=== PATIENT | male | born 1990 | race Caucasian/White ===

== ENCOUNTER 2017-11-13 14:43 | Emergency (ER) | payer OTHER ==
[2017-11-13] MEDS ORDERED: SUMAtriptan 6 MG/0.5 ML VIAL SUBQ STA (15:26)
--- NOTE | 2017-11-13 15:28 | ED Physician Documentation ---
PD HPI HEADACHE - Stated complaint Stated Complaint: DAVALOS - Chief complaint Chief Complaint: Neuro - History obtained from History obtained from: Patient - History of Present Illness Timing - onset: Today (27-year-old gentleman with frequent headaches, usually 4- 5 times a week. Usually left retro-orbital. He had one that started about 2 hours ago and is worse than his usual, although not the worst in his life. He says he used to live in [place] and he has had cranial imaging there which is normal to his understanding. There is no neck stiffness or light sensitivity with it. He tried Advil migraine which did not help. No recent travel or fevers.) Review of Systems Constitutional: reports: Reviewed and negative Cardiac: reports: Reviewed and negative Respiratory: reports: Reviewed and negative PD PAST MEDICAL HISTORY - Present Medications Home Medications: Ambulatory Orders Medication Instructions Recorded Confirmed SUMAtriptan [Imitrex] 25 mg PO BID PRN #14 tablet 11/13/17 - Allergies Allergies/Adverse Reactions: Allergies Allergy/AdvReac Type Severity Reaction Status Date / Time No Known Drug Allergies Allergy Verified 11/13/17 14:51 PD ED PE NORMAL - Vitals Vital signs reviewed: Yes - General General: Alert and oriented X 3, No acute distress - HEENT HEENT: PERRL, EOMI - Neck Neck: Supple, no meningeal sign, No bony TTP - Cardiac Cardiac: RRR, No murmur - Respiratory Respiratory: No respiratory distress, Clear bilaterally - Abdomen Abdomen: Normal bowel sounds, Soft, Non tender - Extremities Extremities: No edema, No calf tenderness / cord - Neuro Neuro: Alert and oriented X 3, Normal speech Eye Opening: Spontaneous Motor: Obeys Commands Verbal: Oriented GCS Score: 15 - Psych Psych: Normal mood, Normal affect Results - Vitals Vitals: Vital Signs - 24 hr 11/13/17 11/13/17 14:48 15:57 Temperature 36.6 C 36.3 C L Heart Rate 91 63 Respiratory 18 17 Rate Blood Pressure 132/78 H 120/73 O2 Saturation 97 99 Oxygen O2 Source Room air PD MEDICAL DECISION MAKING - ED course ED course: The headache is gradual in onset and similar to prior headaches. As such I doubt subarachnoid hemorrhage. There are no infectious symptoms such as fever or stiff neck to make me suspect meningitis. No carbon monoxide exposure by history. He was administered subcutaneous Imitrex with almost complete relief of his symptoms. - Sepsis Event Vital Signs: Vital Signs - 24 hr 11/13/17 11/13/17 14:48 15:57 Temperature 36.6 C 36.3 C L Heart Rate 91 63 Respiratory 18 17 Rate Blood Pressure 132/78 H 120/73 O2 Saturation 97 99 Oxygen O2 Source Room air Departure - Departure Disposition: 01 Home, Self Care Clinical Impression: Migraine headache Qualifiers: Migraine type: without aura Status migrainosus presence: with status migrainosus Intractability: not intractable Qualified Code(s): G43.001 - Migraine without aura, not intractable, with status migrainosus Condition: Good Record reviewed to determine appropriate education?: Yes Instructions: ED Headache Migraine Prescriptions: SUMAtriptan [Imitrex] 25 mg PO BID PRN #14 tablet PRN Reason: Headache Comments: Call your doctor to arrange a follow-up appointment, make the next available appointment. In the interim, return anytime if worse or if new symptoms develop.
[2017-11-13 15:58] VITALS: BP 120/73
== END 2017-11-13 16:14 | disposition home or self-care (01) ==
LOC: ED 14:43
DX: G43.001 Migraine without aura, not intractable, with status migrainosus (principal)
CPT/HCPCS: 96372; 99283

== ENCOUNTER 2017-11-17 21:40 | Emergency (ER) | payer OTHER ==
[2017-11-17] MEDS ORDERED: KETOROLAC 60 MG/2 ML VIAL IVP STA (22:07)
[2017-11-17] MEDS ORDERED: SODIUM CHLORIDE 0.9% 1,000 ML IV ONE (22:07)
[2017-11-17] MEDS ORDERED: METOCLOPRAMIDE 10 MG/2 ML VIAL IVP STA (22:07)
--- NOTE | 2017-11-17 22:28 | ED Physician Documentation ---
History of Present Illness - Stated complaint Stated Complaint: HEAD PX/DIZZY - Chief complaint Chief Complaint: Neuro - History obtained from History obtained from: Patient - Additonal information Additional information: 27-year-old male presents the emergency department for evaluation of headache, dizziness and spaciness. The patient reports having a history of recurrent headaches and normally has 4-5 headaches a week which normally resolve with Advil. The patient was recently seen in the emergency department for a similar headache. The patient reports ongoing head pain similar to his typical headache. The patient denies sudden onset, neck stiffness, radiation into his neck, fever or focal motor changes or focal neurologic changes. The patient also reports feeling "spacey/foggy" the patient has had episodes of feeling forgetful. The patient denies disorientation, confusion or altered mental status. No triggering factors. No relieving factors. Symptoms are described as moderate Review of Systems Constitutional: denies: Fever, Chills Eyes: denies: Loss of vision, Decreased vision, Photophobia, Discharge Ears: denies: Ear pain Nose: denies: Rhinorrhea / runny nose, Congestion Throat: denies: Dental pain / toothache Cardiac: denies: Chest pain / pressure Respiratory: denies: Dyspnea GI: denies: Abdominal Pain : denies: Dysuria Skin: denies: Rash Musculoskeletal: denies: Neck pain Neurologic: reports: Headache. denies: Generalized weakness, Focal weakness, Numbness, Difficulty speaking, Syncope, Altered mental status, Unresponsive, Head injury Immunocompromised: denies: Chemotherapy PD PAST MEDICAL HISTORY - Past Medical History Neuro: Headaches Endocrine/Autoimmune: Other - Past Surgical History Past Surgical History: No - Present Medications Home Medications: Ambulatory Orders Medication Instructions Recorded Confirmed SUMAtriptan [Imitrex] 25 mg PO BID PRN #14 tablet 11/13/17 - Allergies Allergies/Adverse Reactions: Allergies Allergy/AdvReac Type Severity Reaction Status Date / Time No Known Drug Allergies Allergy Verified 11/17/17 21:45 - Social History Does the pt smoke?: No Smoking Status: Never smoker Does the pt drink ETOH?: Yes Does the pt have substance abuse?: No - Immunizations Immunizations are current?: No Immunizations: TDAP >10years/unknown, Other immun current PD ED PE NORMAL - General General: Alert and oriented X 3, No acute distress - HEENT HEENT: Atraumatic, PERRL, Ears normal, Moist mucous membranes - Neck Neck: Supple, no meningeal sign - Cardiac Cardiac: RRR, Strong equal pulses - Respiratory Respiratory: No respiratory distress, Clear bilaterally - Derm Derm: Normal color, No rash - Extremities Extremities: No deformity - Neuro Neuro: Alert and oriented X 3, diplomatic interpreter 2-12 intact, No motor deficit, No sensory deficit, Normal speech - Psych Psych: Normal mood Results - Vitals Vitals: Vital Signs - 24 hr 11/17/17 11/17/17 21:43 23:14 Temperature 36.5 C Heart Rate 72 72 Respiratory 18 18 Rate Blood Pressure 133/85 H 128/75 O2 Saturation 99 98 Oxygen O2 Source Room air - EKG (time done) 22: 15 Rate: Rate (enter#) Rhythm: NSR Intervals: Normal FL, QRS normal Ischemia: Normal ST segments - Labs Labs: Laboratory Tests 11/17/17 11/17/17 11/17/17 22:46 23:40 23:40 Sodium 137 Potassium 3.6 Chloride 108 Carbon Dioxide 23 Anion Gap 6.0 BUN 14 Creatinine 0.8 Estimated GFR (MDRD) 117 Glucose 97 Calcium 8.5 Magnesium 2.0 Total Bilirubin 0.9 AST 21 ALT 20 Alkaline Phosphatase 82 Total Protein 6.8 Albumin 3.8 Globulin 3.0 Albumin/Globulin Ratio 1.3 Lipase 23 TSH 2.90 Free T4 0.97 Urine Color YELLOW Urine Clarity CLEAR Urine pH 7.0 Ur Specific [place] 1.010 Urine Protein NEGATIVE Urine Glucose (UA) NEGATIVE Urine Ketones NEGATIVE Urine Occult Blood NEGATIVE Urine Nitrite NEGATIVE Urine Bilirubin NEGATIVE Urine Urobilinogen 0.2 (NORMAL) Ur Leukocyte Esterase NEGATIVE Ur Microscopic Review NOT INDICATED Urine Culture Comments NOT INDICATED Urine Opiates Screen NEGATIVE Ur Oxycodone Screen NEGATIVE Urine Methadone Screen NEGATIVE Ur Propoxyphene Screen NEGATIVE Ur Barbiturates Screen NEGATIVE Ur Tricyclics Screen NEGATIVE Ur Phencyclidine Scrn NEGATIVE Ur Amphetamine Screen NEGATIVE U Methamphetamines Scrn NEGATIVE U Benzodiazepines Scrn NEGATIVE Urine Cocaine Screen NEGATIVE U Cannabinoids Screen NEGATIVE - Rads (name of study) CT HEAD Radiology: Final report received PD MEDICAL DECISION MAKING - ED course ED course: Reevaluation the patient is resting comfortably in his symptoms are much improved. The patient's workup does not reveal an acute abnormality that would necessitate admission to the hospital or acute surgical consultation. On physical exam there is no evidence of bacterial meningitis or subarachnoid hemorrhage which would necessitate further workup in the emergency department. The patient's symptoms seem to be secondary to a migrainous headache pattern. Given the frequency of the headaches I recommended close follow-up with primary care and suggested that he may require a referral to neurology and possibly an outpatient MRI. The patient is comfortable with this plan and appears appropriate for further workup as an outpatient.. I discussed warning signs and recommended returning to the emergency department immediately for worsening and or any concerns. - Sepsis Event Vital Signs: Vital Signs - 24 hr 11/17/17 11/17/17 21:43 23:14 Temperature 36.5 C Heart Rate 72 72 Respiratory 18 18 Rate Blood Pressure 133/85 H 128/75 O2 Saturation 99 98 Oxygen O2 Source Room air Departure - Departure Disposition: 01 Home, Self Care Clinical Impression: Headache Qualifiers: Headache type: other headache syndrome Qualified Code(s): G44.89 - Other headache syndrome Condition: Good Comments: Please follow-up with your primary care physician this coming week. If your symptoms are not improving you may require a MRI as an outpatient and possibly a referral to neurology for further workup and management of your chronic headaches. Please return to the emergency department immediately for worsening symptoms or any concerns
--- NOTE | 2017-11-17 22:42 | CT Report ---
Procedure Date: 11/17/2017 Accession Number: [id number] / [id number] Procedure: CT - Head W/O CPT Code: FULL RESULT: EXAM: CT HEAD EXAM DATE: 11/17/2017 10:34 PM. CLINICAL HISTORY: Headache. COMPARISON: None. TECHNIQUE: Multiaxial CT images were obtained from the foramen magnum to the vertex. Reformats: Coronal. IV contrast: None. In accordance with CT protocol optimization, one or more of the following dose reduction techniques were utilized for this exam: automated exposure control, adjustment of mA and/or KV based on patient size, or use of iterative reconstructive technique. FINDINGS: Parenchyma: No intraparenchymal hemorrhage. No evidence of mass, midline shift, or CT findings of infarction. Patricia-white differentiation is distinct. Extraaxial Spaces: Normal for age. No subdural or epidural collections identified. Ventricles: Normal in size and position. Sinuses and Orbits: Imaged paranasal sinuses, orbits, and mastoids show no significant abnormality. Bones: No evidence of fracture or calvarial defect. Other: None. IMPRESSION: Normal head CT. RADIA
[2017-11-17 22:57] LABS: MUDS CUTOFF CONCENTRATIONS CUTOFF CONC BELOW:
[2017-11-17 23:02] LABS: BILIRUBIN,URINE NEGATIVE (NEGATIVE); GLUCOSE, URINE (UA) NEGATIVE (NEGATIVE); KETONES,URINE (UA) NEGATIVE (NEGATIVE); LEUKOCYTE ESTERASE, URINE NEGATIVE (NEGATIVE); NITRITE,URINE NEGATIVE (NEGATIVE); OCCULT BLOOD,URINE NEGATIVE (NEGATIVE); PROTEIN,URINE NEGATIVE (NEGATIVE); UROBILINOGEN,URINE 0.2 (NORMAL) E.U./dL (NORMAL)
[2017-11-17 23:08] LABS: CLARITY,URINE CLEAR (CLEAR)
[2017-11-17 23:12] LABS: AMPHETAMINE SCREEN,URINE NEGATIVE (NEGATIVE); BENZODIAZEPINES SCREEN, URINE NEGATIVE (NEGATIVE); COCAINE SCREEN URINE NEGATIVE (NEGATIVE); METHADONE SCREEN, URINE NEGATIVE (NEGATIVE); METHAMPHETAMINES SCREEN, URINE NEGATIVE (NEGATIVE); OPIATE SCREEN, URINE NEGATIVE (NEGATIVE); OXYCODONE SCREEN, URINE NEGATIVE (NEGATIVE); PROPOXYPHENE SCREEN, URINE NEGATIVE (NEGATIVE); TRICYCLIC ANTIDEPRESSANT,URINE NEGATIVE (NEGATIVE)
[2017-11-18 00:05] LABS: ALBUMIN 3.8 g/dL (3.2-5.5); ALBUMIN/GLOBULIN RATIO 1.3 (1.0-2.2); BILIRUBIN,TOTAL 0.9 mg/dL (0.2-1.0); CALCIUM 8.5 mg/dL (8.5-10.3); CREATININE 0.8 mg/dL (0.6-1.2); TOTAL PROTEIN 6.8 g/dL (6.7-8.2)
[2017-11-18 00:21] LABS: THYROID STIMULATING HORMONE 2.9 uIU/mL (0.34-5.60)
[2017-11-18 00:24] LABS: FREE T4 (FREE THYROXINE) 0.97 ng/dL (0.58-1.64)
[2017-11-18 00:41] VITALS: BP 119/79
== END 2017-11-18 00:41 | disposition home or self-care (01) ==
LOC: ED 21:40
DX: G44.89 Other headache syndrome (principal)
CPT/HCPCS: 36415; 70450; 80053; 80306; 81003; 83690; 83735; 84439; 84443; 93005; 96361; 96374; 96375; 99283; J2765; 81001; 87086

== ENCOUNTER 2017-12-09 13:01 | Emergency (ER) | payer OTHER ==
[2017-12-09] MEDS ORDERED: DEXAMETHASONE 10 MG/ML VIAL PO STA (14:02)
--- NOTE | 2017-12-09 14:04 | ED Physician Documentation ---
PD HPI CHEST PAIN - Stated complaint Stated Complaint: LT ARM NUMBNESS/CHEST PX - Chief complaint Chief Complaint: Resp - History obtained from History obtained from: Patient - History of Present Illness Timing - onset: Today Timing - onset during: Rest Timing - duration: Hours Timing - details: Gradual onset, Still present Quality: Tightness Location: Substernal Radiation: Left upper extremity Improved by: Rest Worsened by: Inspiration, Palpation Associated symptoms: Cough. No: Diaphoresis, Nausea, Vomiting, Feeling faint / dizzy, General Weakness, Palpitations Similar symptoms before: Has not had sx before Recently seen: Clinic - Additional information Additional information: 27-year-old male former smoker has developed some shortness of breath this week with a smoke inversion. He went to see his primary care doctor yesterday with some shortness of breath and was given an inhaler which he states that help open up his airway. He does not feel he needs that today but now he is developed some pain in the central portion of his chest is worse with a deep breath. He has some radiation of the pain into his left arm and was told to come to the emergency department for evaluation. Review of Systems Constitutional: denies: Fever Eyes: denies: Decreased vision Ears: denies: Ear pain Nose: reports: Rhinorrhea / runny nose, Congestion Throat: denies: Sore throat Cardiac: reports: Chest pain / pressure. denies: Palpitations, Pedal edema, Calf pain Respiratory: reports: Cough. denies: Dyspnea, Wheezing GI: denies: Abdominal Pain, Nausea, Vomiting : denies: Dysuria, Frequency PD PAST MEDICAL HISTORY - Past Medical History Cardiovascular: None Respiratory: None Neuro: Headaches Endocrine/Autoimmune: Other : None HEENT: None Psych: None Musculoskeletal: None Derm: None Other Past Medical History: Hypoglycemia - Past Surgical History Past Surgical History: No - Present Medications Home Medications: Ambulatory Orders Medication Instructions Recorded Confirmed SUMAtriptan [Imitrex] 25 mg PO BID PRN #14 tablet 11/13/17 Azithromycin [Zithromax] 250 mg PO DAILY #6 tablet 12/09/17 - Allergies Allergies/Adverse Reactions: Allergies Allergy/AdvReac Type Severity Reaction Status Date / Time No Known Drug Allergies Allergy Verified 12/09/17 13:19 - Social History Does the pt smoke?: No Smoking Status: Never smoker Does the pt drink ETOH?: No Does the pt have substance abuse?: No - Immunizations Immunizations are current?: Yes Immunizations: TDAP >10years/unknown, Other immun current - POLST Patient has POLST: No PD ED PE NORMAL - Vitals Vital signs reviewed: Yes (hypertensive mild ) - General General: Alert and oriented X 3, No acute distress, Well developed/nourished - HEENT HEENT: Atraumatic, PERRL, EOMI, Other (mild inflamation in the right TM ) - Neck Neck: Supple, no meningeal sign, No bony TTP - Cardiac Cardiac: RRR, No murmur - Respiratory Respiratory: No respiratory distress, Clear bilaterally - Abdomen Abdomen: Soft, Non tender - Back Back: No CVA TTP, No spinal TTP - Derm Derm: Normal color, Warm and dry, No rash - Extremities Extremities: No deformity, No edema - Neuro Neuro: Alert and oriented X 3, laborer yard 2-12 intact, No motor deficit, No sensory deficit, Normal speech Eye Opening: Spontaneous Motor: Obeys Commands Verbal: Oriented GCS Score: 15 - Psych Psych: Normal mood, Normal affect Results - Vitals Vitals: Vital Signs - 24 hr 12/09/17 13:10 Temperature 36.8 C Heart Rate 80 Respiratory 18 Rate Blood Pressure 128/88 H O2 Saturation 97 Oxygen O2 Source Room air PD MEDICAL DECISION MAKING - ED course Complexity details: reviewed old records, considered differential, d/w patient ED course: 27-year-old male has developed a cough congestion sputum production and chest wall tenderness. He did have some reactive airway disease that improved with the albuterol yesterday and I suspect this is all related to the smoke conversion and the time factor with development of chest wall pain after 5 days. I suspect he had subclinical asthma the entire time leading to the chest wall fatigue. He does have OM on exam and today here in the emergency department we have administered dexamethasone 10 mg orally and we will place on some antibiotic as well. I discussed the findings and pathophysiology of the chest wall strain related to the subclinical asthma and we are expecting complete resolution. - Sepsis Event Vital Signs: Vital Signs - 24 hr 12/09/17 13:10 Temperature 36.8 C Heart Rate 80 Respiratory 18 Rate Blood Pressure 128/88 H O2 Saturation 97 Oxygen O2 Source Room air Departure - Departure Disposition: 01 Home, Self Care Clinical Impression: Strain of chest wall Qualifiers: Encounter type: initial encounter Qualified Code(s): S29.011A - Strain of muscle and tendon of front wall of thorax, initial encounter Otitis media Qualifiers: Otitis media type: suppurative Chronicity: acute Laterality: right Recurrence: not specified as recurrent Spontaneous tympanic membrane rupture: without spontaneous rupture Qualified Code(s): H66.001 - Acute suppurative otitis media without spontaneous rupture of ear drum, right ear Condition: Stable Instructions: ED Otitis Media Acute Adult, ED Strain Chest Wall Ch Follow-Up: [facility] [Provider Group] Prescriptions: Azithromycin [Zithromax] 250 mg PO DAILY #6 tablet
[2017-12-09] MEDS ORDERED: CHERRY SYRUP 10 ML UDC PO ONE (14:06)
[2017-12-09 14:16] VITALS: BP 122/81
== END 2017-12-09 14:17 | disposition home or self-care (01) ==
LOC: ED 13:01
DX: S29.011A Strain of muscle and tendon of front wall of thorax, initial encounter (principal); H66.001 Acute suppurative otitis media without spontaneous rupture of ear drum, right ear; X01.1XXA Exposure to smoke in uncontrolled fire, not in building or structure, initial encounter
CPT/HCPCS: 99283; A9270

== ENCOUNTER 2017-12-25 22:07 | Emergency (ER) | payer OTHER ==
[2017-12-25] MEDS ORDERED: SODIUM CHLORIDE 0.9% 1,000 ML IV ONE (22:19)
[2017-12-25] MEDS ORDERED: ONDANSETRON 4 MG/2 ML VIAL IVP STA (22:19)
[2017-12-25] MEDS ORDERED: KETOROLAC 60 MG/2 ML VIAL IVP STA (22:19)
[2017-12-25 22:40] LABS: BILIRUBIN,URINE NEGATIVE (NEGATIVE); GLUCOSE, URINE (UA) NEGATIVE (NEGATIVE); KETONES,URINE (UA) NEGATIVE (NEGATIVE); LEUKOCYTE ESTERASE, URINE NEGATIVE (NEGATIVE); NITRITE,URINE NEGATIVE (NEGATIVE); OCCULT BLOOD,URINE NEGATIVE (NEGATIVE); PROTEIN,URINE NEGATIVE (NEGATIVE); UROBILINOGEN,URINE 0.2 (NORMAL) E.U./dL (NORMAL)
[2017-12-25 22:40] LABS: BASOPHILS # (AUTO) 0.1 10^3/uL (0.0-0.1); BASOPHILS % (AUTO) 0.7 %; EOSINOPHILS # (AUTO) 0.1 10^3/uL (0.0-0.7); EOSINOPHILS % (AUTO) 0.7 %; HGB - HEMOGLOBIN 14.9 g/dL (14.0-18.0); LYMPHOCYTES % (AUTO) 23.8 %; MEAN CORPUSCULAR HGB CONC 35.4 g/dL (32.0-36.0); MEAN CORPUSCULAR VOLUME 90.6 fL (80.0-94.0); MEAN PLATELET VOLUME 8.2 fL (7.4-11.4); MONOCYTES # (AUTO) 0.7 10^3/uL (0.0-1.0); MONOCYTES % (AUTO) 8.1 %; NEUTROPHILS # (AUTO) 5.7 10^3/uL (1.5-6.6); NEUTROPHILS % (AUTO) 66.7 %; PLT - PLATELET COUNT 266 10^3/uL (130-450); RED BLOOD COUNT 4.64 10^6/uL (4.70-6.10); RED CELL DISTRIBUTION WIDTH 13.1 % (12.0-15.0); WHITE BLOOD COUNT 8.5 x10^3/uL (4.8-10.8)
[2017-12-25 22:44] LABS: CLARITY,URINE CLEAR (CLEAR)
[2017-12-25 22:53] LABS: ALBUMIN 4.4 g/dL (3.2-5.5); ALBUMIN/GLOBULIN RATIO 1.3 (1.0-2.2); BILIRUBIN,TOTAL 0.5 mg/dL (0.2-1.0); CALCIUM 9.1 mg/dL (8.5-10.3); CREATININE 0.8 mg/dL (0.6-1.2); TOTAL PROTEIN 7.7 g/dL (6.7-8.2)
[2017-12-25] MEDS ORDERED: IOPAMIDOL-300 100 ML VIAL ONE (23:35)
[2017-12-26] MEDS ORDERED: IOPAMIDOL-300 100 ML VIAL IVP ONE (00:26)
--- NOTE | 2017-12-26 00:34 | CT Report ---
Reason: LLQ pain Procedure Date: 12/26/2017 Accession Number: [id number] / [id number] Procedure: CT - Abdomen/Pelvis W/ CPT Code: FULL RESULT: EXAM: CT ABDOMEN AND PELVIS EXAM DATE: 12/26/2017 12:06 AM. CLINICAL HISTORY: LLQ pain. COMPARISONS: None. TECHNIQUE: Routine helical CT imaging was performed through the abdomen and pelvis. IV contrast: 100 ML ISOVUE 300. Enteric contrast: No. Reconstructions: Coronal and sagittal. In accordance with CT protocol optimization, one or more of the following dose reduction techniques were utilized for this exam: automated exposure control, adjustment of mA and/or KV based on patient size, or use of iterative reconstructive technique. FINDINGS: Lung Bases: Unremarkable. Liver: Normal. No masses. Gallbladder/Bile Ducts: Unremarkable. Spleen: Normal. Pancreas: Normal. Adrenal Glands: Normal. Kidneys: Normal. No masses or hydronephrosis. Peritoneal Cavity/Bowel: Normal. No free fluid, free air or adenopathy. No masses or acute inflammatory process. The appendix is well visualized and normal. Pelvic Organs: There is inflammation around the distal sigmoid colon and rectum. No diverticula are noted. No pelvic adenopathy. Vasculature: No aneurysms or other significant abnormality. Bones: No significant abnormality. Other: None. IMPRESSION: Inflammation around the distalmost sigmoid colon and rectum, compatible with colitis. No diverticula are noted. No adenopathy. RADIA
[2017-12-26] MEDS ORDERED: AMOX/CLAV 875 MG/125 MG TABLET PO STA (00:37)
[2017-12-26] MEDS ORDERED: HYDROcod/ACETAM 10 MG/325 MG TABLET PO STA (00:41)
--- NOTE | 2017-12-26 00:42 | ED Physician Documentation ---
PD HPI ABD PAIN - Stated complaint Stated Complaint: ABD PX - Chief complaint Chief Complaint: Abd Pain - Additional information Additional information: 27-year-old male presents the emergency department with increasing left lower abdominal pain over the past several days which she describes as a sharp stabbing pain. The patient reports nausea. The patient denies vomiting or diarrhea or blood in the stools. No dysuria. No relieving factors. Symptoms are described as moderate. No other associated symptoms Review of Systems Constitutional: reports: Fatigue. denies: Fever Eyes: denies: Discharge Ears: denies: Ear pain Nose: denies: Congestion Throat: denies: Sore throat Cardiac: denies: Chest pain / pressure Respiratory: denies: Dyspnea GI: reports: Abdominal Pain, Nausea. denies: Bloody / black stool : denies: Dysuria Skin: denies: Rash Musculoskeletal: denies: Neck pain Neurologic: denies: Generalized weakness Immunocompromised: denies: Chemotherapy PD PAST MEDICAL HISTORY - Past Medical History Past Medical History: Yes Cardiovascular: None Respiratory: None Neuro: Headaches Endocrine/Autoimmune: Other : None HEENT: None Psych: None Musculoskeletal: None Derm: None Other Past Medical History: Chronic shoulder pain - Past Surgical History Past Surgical History: No - Present Medications Home Medications: Ambulatory Orders Medication Instructions Recorded Confirmed Fluticasone [Flonase] 2 sprays NS BID 12/25/17 12/25/17 Naproxen 1 tab PO DAILY PRN 12/25/17 12/25/17 Amox/Clav 875/125 [Augmentin] 1 each PO Q12H #20 tablet 12/26/17 HYDROcod/ACETAM 5/325 [[place] 5/325] 1 each PO Q6H PRN #15 tablet 12/26/17 Ondansetron Odt [Zofran] 4 mg TL Q6H PRN #20 tablet 12/26/17 - Allergies Allergies/Adverse Reactions: Allergies Allergy/AdvReac Type Severity Reaction Status Date / Time No Known Drug Allergies Allergy Verified 12/25/17 22:15 - Social History Does the pt smoke?: No Smoking Status: Never smoker Does the pt drink ETOH?: No Does the pt have substance abuse?: No - Immunizations Immunizations are current?: Yes Immunizations: TDAP >10years/unknown, Other immun current - POLST Patient has POLST: No PD ED PE NORMAL - General General: Alert and oriented X 3, No acute distress - HEENT HEENT: Atraumatic, PERRL, EOMI, Ears normal - Cardiac Cardiac: RRR, Strong equal pulses - Respiratory Respiratory: No respiratory distress - Abdomen Abdomen: Soft, Non distended. No: Non tender (The patient has tenderness to palpation in the left lower quadrant, there is no rebound or peritoneal signs) - Male Male : Functional Architect present, Other (The patient has no swelling of the testicles , there is no tenderness of the testicles bilaterally, there is no skin changes , the patient has normal cremasteric reflex) - Derm Derm: Normal color - Extremities Extremities: No deformity, No edema - Neuro Neuro: Alert and oriented X 3, Normal speech - Psych Psych: Normal affect Results - Vitals Vitals: Vital Signs - 24 hr 12/25/17 12/25/17 22:13 23:01 Temperature 36.7 C Heart Rate 80 76 Respiratory 16 16 Rate Blood Pressure 115/79 120/77 O2 Saturation 98 99 Oxygen O2 Source Room air - Labs Labs: Laboratory Tests 12/25/17 12/25/17 12/25/17 22:25 22:33 22:33 WBC 8.5 RBC 4.64 L Hgb 14.9 Hct 42.0 MCV 90.6 MCH 32.0 H MCHC 35.4 RDW 13.1 Plt Count 266 MPV 8.2 Neut # (Auto) 5.7 Lymph # (Auto) 2.0 [place] # (Auto) 0.7 Eos # (Auto) 0.1 Baso # (Auto) 0.1 Absolute Nucleated RBC 0.00 Nucleated RBC % 0.0 Sodium 138 Potassium 3.6 Chloride 104 Carbon Dioxide 26 Anion Gap 8.0 BUN 13 Creatinine 0.8 Estimated GFR (MDRD) 117 Glucose 97 Calcium 9.1 Total Bilirubin 0.5 AST 22 ALT 23 Alkaline Phosphatase 87 Total Protein 7.7 Albumin 4.4 Globulin 3.3 Albumin/Globulin Ratio 1.3 Lipase 28 Urine Color YELLOW Urine Clarity CLEAR Urine pH 7.0 Ur Specific [place] 1.020 Urine Protein NEGATIVE Urine Glucose (UA) NEGATIVE Urine Ketones NEGATIVE Urine Occult Blood NEGATIVE Urine Nitrite NEGATIVE Urine Bilirubin NEGATIVE Urine Urobilinogen 0.2 (NORMAL) Ur Leukocyte Esterase NEGATIVE Ur Microscopic Review NOT INDICATED Urine Culture Comments NOT INDICATED - Rads (name of study) CT abd/pelvis Radiology: Final report received (IMPRESSION: Inflammation around the distalmost sigmoid colon and rectum, compatible with colitis. No diverticula are noted. No adenopathy. ) PD MEDICAL DECISION MAKING - ED course ED course: The patient's workup reveals colitis, on reevaluation the patient resting comfortably and appears much improved. There is no evidence of sepsis or perforation which would necessitate admission to the hospital or acute surgical consultation. The patient appears appropriate for outpatient management. I discussed warning signs and recommended returning to the emergency department immediately for worsening symptoms or any concerns - Sepsis Event Vital Signs: Vital Signs - 24 hr 12/25/17 12/25/17 22:13 23:01 Temperature 36.7 C Heart Rate 80 76 Respiratory 16 16 Rate Blood Pressure 115/79 120/77 O2 Saturation 98 99 Oxygen O2 Source Room air Departure - Departure Disposition: 01 Home, Self Care Clinical Impression: Acute abdominal pain, Colitis Instructions: Abdominal Pain Prescriptions: Amox/Clav 875/125 [Augmentin] 1 each PO Q12H #20 tablet HYDROcod/ACETAM 5/325 [[place] 5/325] 1 each PO Q6H PRN #15 tablet PRN Reason: Pain Ondansetron Odt [Zofran] 4 mg TL Q6H PRN #20 tablet PRN Reason: Nausea / Vomiting Comments: Please follow-up with your primary care this week for recheck. Please asked them to arrange for an outpatient colonoscopy to further evaluate your findings today. Please return to the emergency department immediately for worsening symptoms or any concerns.
[2017-12-26 01:20] VITALS: BP 122/72
== END 2017-12-26 00:50 | disposition home or self-care (01) ==
LOC: ED 22:07
DX: K52.9 Noninfective gastroenteritis and colitis, unspecified (principal); R11.0 Nausea
CPT/HCPCS: 36415; 74177; 80053; 81003; 83690; 85025; 96361; 96374; 96375; 99283; 99284; A9270; Q9967; 81001; 87086

== ENCOUNTER 2018-02-27 13:14 | Emergency (ER) | payer OTHER ==
--- NOTE | 2018-02-27 14:44 | ED Physician Documentation ---
PD HPI MALE - Stated complaint Stated Complaint: BLOOD IN URINE - Chief complaint Chief Complaint: UTI - History obtained from History obtained from: Patient - History of Present Illness Timing - onset: Yesterday Timing - details: Abrupt onset (noted onset of some stinging feeling with urination yesterday and this morning and some blood in urine today. No prior similar. No sores nor rash.) Associated symptoms: Dysuria, Hematuria. No: Discharge, Genital sore / lesion, Testiclar pain Similar symptoms before: Has not had sx before Recently seen: Not recently seen Review of Systems Constitutional: denies: Fever, Chills Throat: denies: Sore throat : reports: Dysuria, Hematuria. denies: Discharge Skin: denies: Rash PD PAST MEDICAL HISTORY - Past Medical History Cardiovascular: None Respiratory: None Neuro: Headaches Endocrine/Autoimmune: Other : None HEENT: None Psych: None Musculoskeletal: None Derm: None - Past Surgical History Past Surgical History: No - Present Medications Home Medications: Ambulatory Orders Medication Instructions Recorded Confirmed Fluticasone [Flonase] 2 sprays NS BID 12/25/17 12/25/17 Naproxen 1 tab PO DAILY PRN 12/25/17 12/25/17 Amox/Clav 875/125 [Augmentin] 1 each PO Q12H #20 tablet 12/26/17 HYDROcod/ACETAM 5/325 [Martha 5/325] 1 each PO Q6H PRN #15 tablet 12/26/17 Ondansetron Odt [Zofran] 4 mg TL Q6H PRN #20 tablet 12/26/17 Naproxen 375 mg PO BID #20 tablet 02/27/18 Phenazopyridine HCl [Pyridium] 200 mg PO TID PRN #6 tablet 02/27/18 Sulfamethox/Trimeth 800/160 1 each PO BID #14 tablet 02/27/18 [Bactrim Ds 800/160] - Allergies Allergies/Adverse Reactions: Allergies Allergy/AdvReac Type Severity Reaction Status Date / Time No Known Drug Allergies Allergy Verified 12/25/17 22:15 - Social History Does the pt smoke?: No Smoking Status: Never smoker Does the pt drink ETOH?: No Does the pt have substance abuse?: No - Immunizations Immunizations are current?: Yes Immunizations: TDAP >10years/unknown, Other immun current - POLST Patient has POLST: No PD ED PE NORMAL - Vitals Vital signs reviewed: Yes - General General: Alert and oriented X 3, No acute distress, Well developed/nourished - Abdomen Abdomen: Soft, Non tender - Male Male : Other (normal genitalia. ) - Back Back: No CVA TTP Results - Vitals Vitals: Oxygen O2 Source Room air - Labs Labs: Microbiology 02/27/18 13:36 Urine Culture - Final Urine,Clean Catch LESS THAN 10,000 COLONIES/ML polymicrobial growth including potential pathogens. This is suggestive of skin or other contamination. Laboratory Tests 02/27/18 13:36 Urine Color RED/BLOODY Urine Clarity BLOODY Urine pH 7.0 Ur Specific [place] 1.010 Urine Protein 100 H Urine Glucose (UA) NEGATIVE Urine Ketones NEGATIVE Urine Occult Blood LARGE H Urine Nitrite NEGATIVE Urine Bilirubin NEGATIVE Urine Urobilinogen 0.2 (NORMAL) Ur Leukocyte Esterase MODERATE H Urine RBC TNTC H Urine WBC 11-25 H Ur Squamous Epith Cells NONE SEEN Urine Bacteria None Seen Ur Microscopic Review INDICATED Urine Culture Comments INDICATED Departure - Departure Disposition: 01 Home, Self Care Clinical Impression: Dysuria UTI (urinary tract infection) Qualifiers: Urinary tract infection type: acute cystitis Hematuria presence: with hematuria Qualified Code(s): N30.01 - Acute cystitis with hematuria Condition: Stable Record reviewed to determine appropriate education?: Yes Instructions: ED UTI Cystitis Male Prescriptions: Naproxen 375 mg PO BID #20 tablet Phenazopyridine HCl [Pyridium] 200 mg PO TID PRN #6 tablet PRN Reason: dysuria Sulfamethox/Trimeth 800/160 [Bactrim Ds 800/160] 1 each PO BID #14 tablet Comments: Drink lots of fluids. Tylenol if needed for fevers or pains. Naproxen twice daily for a week for the inflammation. Pyridium (Azo) to help with discomfort of urination. Bactrim antibiotic twice daily for a week. He should feel improved over the next couple of days. Recheck if not improved over the next few days or if worsening symptoms. Discharge Date/Time: 02/27/18 15:29
[2018-02-27] MEDS ORDERED: IBUPROFEN 400 MG TABLET PO STA (15:10)
[2018-02-27] MEDS ORDERED: PHENAZOPYRIDINE 100 MG TABLET PO STA (15:10)
[2018-02-27] MEDS ORDERED: SULFAMETH/TRIMETH DS 800/160 MG TABLET PO STA (15:10)
[2018-02-27 15:11] LABS: BILIRUBIN,URINE NEGATIVE (NEGATIVE); GLUCOSE, URINE (UA) NEGATIVE (NEGATIVE); KETONES,URINE (UA) NEGATIVE (NEGATIVE); LEUKOCYTE ESTERASE, URINE MODERATE (NEGATIVE); NITRITE,URINE NEGATIVE (NEGATIVE); OCCULT BLOOD,URINE LARGE (NEGATIVE); PROTEIN,URINE 100 mg/dL (NEGATIVE); UROBILINOGEN,URINE 0.2 (NORMAL) E.U./dL (NORMAL)
[2018-02-27 15:15] LABS: BACTERIA,URINE None Seen /HPF (None Seen); CLARITY,URINE BLOODY (CLEAR); RBC,URINE TNTC /HPF (0-5); SQUAMOUS EPITHELIAL CELL,UR NONE SEEN (<= Few)
[2018-02-27 15:28] VITALS: BP 128/74
== END 2018-02-27 15:29 | disposition home or self-care (01) ==
LOC: ED 13:14
DX: N30.01 Acute cystitis with hematuria (principal); Z79.1 Long term (current) use of non-steroidal anti-inflammatories (NSAID)
CPT/HCPCS: 81001; 87086; 99283; A9270; 81003

== ENCOUNTER 2018-07-23 01:23 | Emergency (ER) | payer OTHER ==
--- NOTE | 2018-07-23 02:35 | ED Physician Documentation ---
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 He states that he is having this off and on for the past 2 months he is now feeling some pain in his neck and side of his head bit of a headache and today he had some bright red blood in the bowl. He does have internal hemorrhoids he does not believe they are bothering him right now. Review of Systems Constitutional: denies: Fever Eyes: denies: Decreased vision Ears: denies: Loss of hearing Nose: denies: Rhinorrhea / runny nose, Congestion Throat: denies: Sore throat Cardiac: denies: Chest pain / pressure, Palpitations Respiratory: denies: Dyspnea, Cough GI: reports: Diarrhea, Bloody / black stool. denies: Abdominal Pain, Nausea, Vomiting : denies: Dysuria, Frequency PD PAST MEDICAL HISTORY - Past Medical History Past Medical History: Yes Cardiovascular: None Respiratory: None Neuro: Headaches Endocrine/Autoimmune: Other : None HEENT: None Psych: None Musculoskeletal: None Derm: None - Past Surgical History Past Surgical History: No - Present Medications Home Medications: Ambulatory Orders Medication Instructions Recorded Confirmed Fluticasone [Flonase] 2 sprays NS BID 12/25/17 12/25/17 Naproxen 1 tab PO DAILY PRN 12/25/17 12/25/17 Amox/Clav 875/125 [Augmentin] 1 each PO Q12H #20 tablet 12/26/17 HYDROcod/ACETAM 5/325 [[place] 5/325] 1 each PO Q6H PRN #15 tablet 12/26/17 Ondansetron Odt [Zofran] 4 mg TL Q6H PRN #20 tablet 12/26/17 Naproxen 375 mg PO BID #20 tablet 02/27/18 Phenazopyridine HCl [Pyridium] 200 mg PO TID PRN #6 tablet 02/27/18 Sulfamethox/Trimeth 800/160 1 each PO BID #14 tablet 02/27/18 [Bactrim Ds 800/160] - Allergies Allergies/Adverse Reactions: Allergies Allergy/AdvReac Type Severity Reaction Status Date / Time No Known Drug Allergies Allergy Verified 07/23/18 01:35 - Social History Does the pt smoke?: No Smoking Status: Never smoker Does the pt drink ETOH?: No Does the pt have substance abuse?: No - Immunizations Immunizations are current?: Yes Immunizations: TDAP >10years/unknown, Other immun current - POLST Patient has POLST: No PD ED PE NORMAL - Vitals Vital signs reviewed: Yes (normal ) - General General: Alert and oriented X 3, No acute distress, Well developed/nourished - HEENT HEENT: Atraumatic, PERRL, EOMI, Ears normal, Moist mucous membranes - Neck Neck: Supple, no meningeal sign, No bony TTP - Cardiac Cardiac: RRR, No murmur - Respiratory Respiratory: No respiratory distress, Clear bilaterally - Abdomen Abdomen: Soft, Non tender - Rectal Rectal: Other (guiac negative brown stool. Rectum with internal hemorrhoid not bleeding. normal sphincter tone. ) - Back Back: No CVA TTP, No spinal TTP - Derm Derm: Normal color, Warm and dry, No rash - Extremities Extremities: No deformity, No edema - Neuro Neuro: Alert and oriented X 3, dietetic tech 2-12 intact, No motor deficit, No sensory deficit, Normal speech Eye Opening: Spontaneous Motor: Obeys Commands Verbal: Oriented GCS Score: 15 - Psych Psych: Normal mood, Normal affect Results - Vitals Vitals: Vital Signs - 24 hr 07/23/18 07/23/18 01:30 01:57 Temperature 36.4 C L Heart Rate 73 Respiratory 16 16 Rate Blood Pressure 123/77 O2 Saturation 98 Oxygen O2 Source Room air - Labs Labs: Laboratory Tests 07/23/18 07/23/18 03:00 03:00 WBC 6.1 RBC 4.67 L Hgb 14.6 Hct 42.1 MCV 90.2 MCH 31.2 H MCHC 34.6 RDW 13.3 Plt Count 212 MPV 8.2 Neut # (Auto) 4.3 Lymph # (Auto) 1.1 L [place] # (Auto) 0.7 Eos # (Auto) 0.0 Baso # (Auto) 0.0 Absolute Nucleated RBC 0.00 Nucleated RBC % 0.1 Sodium 137 Potassium 3.7 Chloride 102 Carbon Dioxide 26 Anion Gap 9.0 BUN 11 Creatinine 0.9 Estimated GFR (MDRD) 101 Glucose 111 H Calcium 9.0 Total Bilirubin 0.6 AST 25 ALT 20 Alkaline Phosphatase 77 Total Protein 7.2 Albumin 4.1 Globulin 3.1 Albumin/Globulin Ratio 1.3 Lipase 27 PD MEDICAL DECISION MAKING - ED course Complexity details: considered differential, d/w patient ED course: 28-year-old male gives a history of dark tarry stool for 2 months and he is now worried about signs and symptoms of blood loss. He feels fatigued and has seen bright red blood in the toilet toilet bowl. On examination he has guaiac- negative brown stool and the remainder of his exam is unremarkable. The patient gives a history of abnormal bowel movements lasting months and I suspect the patient is under significant stress. He indicates he is going through a divorce. I suspect the bright red blood today is related to the internal hemorrhoid I do not believe that any of the dark stool patient has had relates to blood. Departure - Departure Disposition: 01 Home, Self Care Clinical Impression: Hemorrhoids, internal, with bleeding Condition: Stable Instructions: ED Hematochezia Stable, ED Hemorrhoids, ED Stress React Follow-Up: Kathryn Madera MD [Primary Care Provider] -
[2018-07-23 03:10] LABS: BASOPHILS % (AUTO) 0.3 %; EOSINOPHILS % (AUTO) 0.6 %; HGB - HEMOGLOBIN 14.6 g/dL (14.0-18.0); LYMPHOCYTES # (AUTO) 1.1 10^3/uL (1.5-3.5); LYMPHOCYTES % (AUTO) 17.8 %; MEAN CORPUSCULAR HEMOGLOBIN 31.2 pg (27.0-31.0); MEAN CORPUSCULAR HGB CONC 34.6 g/dL (32.0-36.0); MEAN CORPUSCULAR VOLUME 90.2 fL (80.0-94.0); MEAN PLATELET VOLUME 8.2 fL (7.4-11.4); MONOCYTES # (AUTO) 0.7 10^3/uL (0.0-1.0); MONOCYTES % (AUTO) 10.7 %; NEUTROPHILS # (AUTO) 4.3 10^3/uL (1.5-6.6); NEUTROPHILS % (AUTO) 70.6 %; PLT - PLATELET COUNT 212 10^3/uL (130-450); RED BLOOD COUNT 4.67 10^6/uL (4.70-6.10); RED CELL DISTRIBUTION WIDTH 13.3 % (12.0-15.0); WHITE BLOOD COUNT 6.1 x10^3/uL (4.8-10.8)
[2018-07-23 03:21] LABS: ALBUMIN 4.1 g/dL (3.2-5.5); ALBUMIN/GLOBULIN RATIO 1.3 (1.0-2.2); BILIRUBIN,TOTAL 0.6 mg/dL (0.2-1.0); CREATININE 0.9 mg/dL (0.6-1.2); TOTAL PROTEIN 7.2 g/dL (6.7-8.2)
[2018-07-23 03:39] VITALS: BP 115/74
== END 2018-07-23 03:43 | disposition home or self-care (01) ==
LOC: ED 01:23
DX: K64.8 Other hemorrhoids (principal)
CPT/HCPCS: 36415; 80053; 83690; 85025; 99283

== ENCOUNTER 2019-05-19 23:27 | Emergency (ER) | payer OTHER ==
[2019-05-19 23:36] VITALS: BP 125/69
--- NOTE | 2019-05-19 23:54 | ED Physician Documentation ---
History of Present Illness - Stated complaint Stated Complaint: FEVER 103, STIFF NECK, DAVALOS - Chief complaint Chief Complaint: Fever - History obtained from History obtained from: Patient (Patient is a very pleasant 29-year-old male who presents with flulike symptoms to include a mild headachePatient is a very pleasant 29-year-old male who presents with flulike symptoms to include a mild headacheHe denies rashes or seizures he did not get a flu shot this year pain or neck stiffness he did try taking TheraFlu yesterday but he continues to have a fever for the past 2 to 3 days with a mild sore throat and a mild cough.Otherwise the patient reports that is healthy and is up-to-date on all 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.) Review of Systems Constitutional: reports: Fever, Myalgias, Reviewed and negative Eyes: reports: Reviewed and negative Ears: reports: Reviewed and negative Nose: reports: Reviewed and negative Throat: reports: Sore throat, Reviewed and negative Cardiac: reports: Reviewed and negative Respiratory: reports: Reviewed and negative GI: reports: Reviewed and negative : reports: Reviewed and negative Skin: reports: Reviewed and negative Musculoskeletal: denies: Neck pain, Back pain Neurologic: reports: Reviewed and negative Psychiatric: reports: Reviewed and negative Endocrine: reports: Reviewed and negative Immunocompromised: reports: Reviewed and negative PD PAST MEDICAL HISTORY - Past Medical History Past Medical History: Yes Cardiovascular: None Respiratory: None Neuro: Headaches Endocrine/Autoimmune: Other : None HEENT: None Psych: None Musculoskeletal: None Derm: None - Past Surgical History Past Surgical History: No - Present Medications Home Medications: Ambulatory Orders Medication Instructions Recorded Confirmed Fluticasone [Flonase] 2 sprays NS BID 12/25/17 12/25/17 Naproxen 1 tab PO DAILY PRN 12/25/17 12/25/17 Amox/Clav 875/125 [Augmentin] 1 each PO Q12H #20 tablet 12/26/17 HYDROcod/ACETAM 5/325 [[place] 5/325] 1 each PO Q6H PRN #15 tablet 12/26/17 Ondansetron Odt [Zofran] 4 mg TL Q6H PRN #20 tablet 12/26/17 Naproxen 375 mg PO BID #20 tablet 02/27/18 Phenazopyridine HCl [Pyridium] 200 mg PO TID PRN #6 tablet 02/27/18 Sulfamethox/Trimeth 800/160 1 each PO BID #14 tablet 02/27/18 [Bactrim Ds 800/160] - Allergies Allergies/Adverse Reactions: Allergies Allergy/AdvReac Type Severity Reaction Status Date / Time No Known Drug Allergies Allergy Verified 07/23/18 01:35 - Social History Does the pt smoke?: No Smoking Status: Never smoker Does the pt drink ETOH?: No Does the pt have substance abuse?: No - Immunizations Immunizations are current?: Yes Immunizations: TDAP >10years/unknown, Other immun current - POLST Patient has POLST: No PD ED PE NORMAL - Vitals Vital signs reviewed: Yes - General General: Alert and oriented X 3, No acute distress, Well developed/nourished - HEENT HEENT: Atraumatic, PERRL, EOMI, Ears normal, Moist mucous membranes, Pharynx benign, Dentition benign - Neck Neck: Supple, no meningeal sign, No bony TTP, No adenopathy, Thyroid normal, No JVD, No bruit - Cardiac Cardiac: RRR, No murmur, Strong equal pulses - Respiratory Respiratory: No respiratory distress, Clear bilaterally - Abdomen Abdomen: Normal bowel sounds, Soft, Non tender, Non distended - Back Back: No CVA TTP, No spinal TTP - Derm Derm: Normal color, Warm and dry, No rash - Extremities Extremities: No deformity, No tenderness to palpate, Normal ROM s pain, No edema - Neuro Neuro: Alert and oriented X 3, 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 He is well-appearing on exam he feels better after receiving 800 mg of ibuprofen he denies neck pain on exam there no meningeal signs he is well-appearing, nontoxic and nonseptic appearing plan at this point will be to take antipyretics at home and hydrate well.And should have close follow-up with a primary care provider if not return to the emergency dep artment with any concerns.) Departure - Departure Disposition: 01 Home, Self Care Clinical Impression: Fever Qualifiers: Fever type: unspecified Qualified Code(s): R50.9 - Fever, unspecified Condition: Good Instructions: ED Fever Unconf Cause Ch, IBUPROFEN (Adult) Follow-Up: YOUR,DOCTOR [Other] - Tomorrow Comments: Take 800 mg of ibuprofen every 6 hours as needed for pain or fever. Follow-up with the primary care provider this week if you are not improving return to the emergency department with any concerns.
[2019-05-20] MEDS ORDERED: IBUPROFEN 800 MG TABLET PO STA (00:07)
== END 2019-05-20 00:34 | disposition home or self-care (01) ==
LOC: ED 23:27
DX: R50.9 Fever, unspecified (principal)
CPT/HCPCS: 87275; 87276; 99283; 99284; A9270

== ENCOUNTER 2020-08-28 20:06 | Emergency (ER) | payer OTHER, BC ==
[2020-08-28 20:27] VITALS: BP 129/70
--- NOTE | 2020-08-28 20:40 | ED Physician Documentation ---
PD HPI LOWER EXT INJURY - Stated complaint Stated Complaint: LT LEG PX - Chief complaint Chief Complaint: Trauma Ext - History obtained from History obtained from: Patient - History of Present Illness PD HPI LOW EXT INJURY LOCATION: Left Type of injury: Fall, Twist Timing - onset: Today - Additional information Additional information: He was unloading wood from a truck and 2 pieces of wood hit him in the knee and then he fell and twisted his left knee. Pain is mild to moderate. He is able to walk and bear weight. No other injuries. Review of Systems Constitutional: reports: Reviewed and negative Eyes: reports: Reviewed and negative Ears: reports: Reviewed and negative Nose: reports: Reviewed and negative Throat: reports: Reviewed and negative PD PAST MEDICAL HISTORY - Past Medical History Cardiovascular: None Respiratory: None Neuro: Headaches Endocrine/Autoimmune: Other : None HEENT: None Psych: None Musculoskeletal: None Derm: None - Past Surgical History Past Surgical History: No - Present Medications Home Medications: Ambulatory Orders Medication Instructions Recorded Confirmed No Known Home Medications 08/28/20 08/28/20 - Allergies Allergies/Adverse Reactions: Allergies Allergy/AdvReac Type Severity Reaction Status Date / Time No Known Drug Allergies Allergy Verified 08/28/20 20:19 - Social History Does the pt smoke?: No Smoking Status: Never smoker Does the pt drink ETOH?: No Does the pt have substance abuse?: No - Immunizations Immunizations are current?: Yes Immunizations: TDAP >10years/unknown, Other immun current - POLST Patient has POLST: No PD ED PE NORMAL - Vitals Vital signs reviewed: Yes - General General: Alert and oriented X 3, No acute distress - Extremities Extremities: Other (Mild tenderness of the anterior knee, ligamentous testing is without laxity and painless. Negative grind testing. No effusion.) - Neuro Neuro: Alert and oriented X 3, Normal speech Results - Vitals Vitals: Vital Signs - 24 hr 08/28/20 20:16 Temperature 36.5 C Heart Rate 77 Respiratory 16 Rate Blood Pressure 129/70 O2 Saturation 99 Oxygen O2 Source Room air - Rads (name of study) Three-view x-ray left knee Radiology: EMP read contemporaneously (Normal) Departure - Departure Disposition: 01 Home, Self Care Clinical Impression: Contusion of knee, left Qualifiers: Encounter type: initial encounter Qualified Code(s): S80.02XA - Contusion of left knee, initial encounter Condition: Good Record reviewed to determine appropriate education?: Yes Instructions: ED Sprain Knee Comments: X-ray of the knee looks normal, return for new or worsening symptoms. Tylenol or ibuprofen as needed for pain. If no improvement within a week's time, fo llow-up with your primary care physician for reevaluation and potential repeat or advanced imaging. Forms: Activity restrictions
--- NOTE | 2020-08-28 21:12 | XRAY Report ---
PROCEDURE: Knee 3 View LT INDICATIONS: injury, pain, hurts to bear weight TECHNIQUE: 3 views of the left knee(s) were acquired. COMPARISON: None. FINDINGS: Bones: No fractures or dislocations. No suspicious bony lesions. Soft tissues: No joint effusion. No suspicious soft tissue calcifications. IMPRESSION: No acute osseous abnormalities. If clinical symptoms persist or there are clinical suspi cion for internal derangement, nonemergent MRI may be helpful. Reviewed by: Camryn Arce MD on 08/28/2020 9:11 PM PDT Approved by: Camryn Arce MD on 08/28/2020 9:11 PM PDT Station ID: [id number]
== END 2020-08-28 21:22 | disposition home or self-care (01) ==
LOC: ED 20:06
DX: S80.02XA Contusion of left knee, initial encounter (principal); W22.8XXA Striking against or struck by other objects, initial encounter; Y93.H9 Activity, other involving exterior property and land maintenance, building and construction
CPT/HCPCS: 1040M; 73562; 99282; 99283

== ENCOUNTER 2021-03-16 14:27 | Outpatient (CLI) | payer BC, OTHER ==
[2021-03-16 18:08] LABS: BASOPHILS % (AUTO) 0.4 %; EOSINOPHILS % (AUTO) 0.4 %; HCT - HEMATOCRIT 43.7 % (42.0-52.0); HGB - HEMOGLOBIN 15.2 g/dL (14.0-18.0); LYMPHOCYTES # (AUTO) 1.1 10^3/uL (1.5-3.5); LYMPHOCYTES % (AUTO) 22.1 %; MEAN CORPUSCULAR HEMOGLOBIN 32.1 pg (27.0-31.0); MEAN CORPUSCULAR HGB CONC 34.8 g/dL (32.0-36.0); MEAN CORPUSCULAR VOLUME 92.2 fL (80.0-94.0); MEAN PLATELET VOLUME 10.5 fL (7.4-11.4); MONOCYTES # (AUTO) 0.8 10^3/uL (0.0-1.0); MONOCYTES % (AUTO) 15.7 %; NEUTROPHILS % (AUTO) 61.2 %; PLT - PLATELET COUNT 284 10^3/uL (130-450); RED BLOOD COUNT 4.74 10^6/uL (4.70-6.10); RED CELL DISTRIBUTION WIDTH 12.7 % (12.0-15.0); WHITE BLOOD COUNT 4.9 x10^3/uL (4.8-10.8)
[2021-03-16 18:25] LABS: ALBUMIN 4.2 g/dL (3.2-5.5); ALBUMIN/GLOBULIN RATIO 1.3 (1.0-2.2); BILIRUBIN,TOTAL 0.6 mg/dL (0.2-1.0); CALCIUM 9.4 mg/dL (8.5-10.3); POTASSIUM 3.8 mmol/L (3.5-5.0); TOTAL PROTEIN 7.5 g/dL (6.7-8.2)
== END 2021-03-16 23:59 | disposition home or self-care (01) ==
LOC: LAB.N 14:27
PROVIDERS: ATTEND Nurse Practitioner
DX: R51.9 Headache, unspecified (principal)
CPT/HCPCS: 36415; 80053; 85025

== ENCOUNTER 2021-08-08 01:54 | Outpatient (CLI) | payer BC | END 2021-08-08 01:55 | disposition EMS.NT | LOC: EMS 01:54 | DX: F41.9 Anxiety disorder, unspecified (principal) ==

== ENCOUNTER 2023-05-16 21:36 | Outpatient (CLI) | payer BC | END 2023-05-16 21:37 | disposition critical access hospital (66) | LOC: EMS 21:36 | DX: R55 Syncope and collapse (principal); R11.2 Nausea with vomiting, unspecified; R68.83 Chills (without fever); R53.1 Weakness; R53.83 Other fatigue | CPT/HCPCS: A0425; A0427 ==

== ENCOUNTER 2023-05-16 21:55 | Emergency (ER) | payer BC ==
--- NOTE | 2023-05-16 22:02 | ED Physician Documentation ---
PD HPI SYNCOPE - Stated complaint Stated Complaint: SYNCOPE - History obtained from History obtained from: Patient, EMS - History of Present Illness Witnessed: Unwitnessed - Additional information Additional information: Kathy KIM. HPI from patient, EMS. While at work today, patient developed gradual onset of generalized malaise, nausea, felt like he might of a fever (he did take his temperature and Tmax 100). Tonight, patient was resting on his bed when he developed nausea felt like he had to throw up. He got out of bed to go to the bathroom, became dizzy and felt like he might pass out and thus returned to his bed. He laid down and continued to feel like he was going to pass out and thus called 911. 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 Patient indicates he had this (syncope) once before when he had COVID. Fingerstick by EMS was 128. Patient was given 4 mg IV Zofran.Patient denies chest pain, shortness of breath, abdominal pain. He says he still feels some residual nausea but much improved, no longer feels lightheaded. Review of Systems Constitutional: reports: Myalgias, Fatigue. denies: Fever (Tmax 100 (thus elevated temperature but not fever per se)) Throat: denies: Sore throat Cardiac: reports: Reviewed and negative Respiratory: reports: Reviewed and negative GI: reports: Nausea, Vomiting. denies: Abdominal Pain Neurologic: reports: Generalized weakness, Syncope. denies: Focal weakness, Numbness, Headache, Head injury PD PAST MEDICAL HISTORY - Past Medical History Cardiovascular: None Respiratory: None Neuro: Headaches Endocrine/Autoimmune: Other : None HEENT: None Psych: None Musculoskeletal: None Derm: None - Past Surgical History Past Surgical History: No - Present Medications Home Medications: Ambulatory Orders Medication Instructions Recorded Confirmed No Known Home Medications 08/28/20 08/28/20 - Allergies Allergies/Adverse Reactions: Allergies Allergy/AdvReac Type Severity Reaction Status Date / Time No Known Drug Allergies Allergy Verified 05/16/23 22:12 - Social History Does the pt smoke?: No Smoking Status: Never smoker Does the pt drink ETOH?: No Does the pt have substance abuse?: No - Immunizations Immunizations are current?: Yes Immunizations: TDAP >10years/unknown, Other immun current - POLST Patient has POLST: No PD ED PE NORMAL - Vitals Vital signs reviewed: Yes - General General: Alert and oriented X 3, No acute distress, Well developed/nourished - HEENT HEENT: Other (tacky mucous membranes) - Neck Neck: Supple, no meningeal sign - Cardiac Cardiac: RRR, No murmur - Respiratory Respiratory: No respiratory distress, Clear bilaterally - Abdomen Abdomen: Soft, Non tender, Non distended - Derm Derm: Normal color, Warm and dry - Extremities Extremities: No edema - Neuro Neuro: Alert and oriented X 3, 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 Relevant findings are: Rate: Rate (enter#) (89) Rhythm: NSR [place]: Normal Intervals: Normal SC QRS: Normal Ischemia: ST elevation c/w repol - Labs Labs: Laboratory Tests 05/16/23 05/16/23 05/16/23 22:22 22:22 23:12 WBC 13.9 H RBC 4.76 Hgb 14.8 Hct 45.1 MCV 94.7 H MCH 31.1 H MCHC 32.8 RDW 13.4 Plt Count 259 MPV 9.5 Neut # (Auto) 12.7 H Lymph # (Auto) 0.3 L [place] # (Auto) 0.8 Eos # (Auto) 0.0 Baso # (Auto) 0.0 Absolute Nucleated RBC 0.00 Nucleated RBC % 0.0 Sodium 139 Potassium 3.5 Chloride 106 Carbon Dioxide 26 Anion Gap 7.0 BUN 18 Creatinine 1.0 Estimated GFR (MDRD) 87 L Glucose 96 Calcium 8.4 L Total Bilirubin 0.8 AST 15 ALT 14 Alkaline Phosphatase 72 Total Protein 6.6 Albumin 4.0 Globulin 2.6 Albumin/Globulin Ratio 1.5 Lipase 12 Nasal Adenovirus (PCR) NOT DETECTED Nasal B. parapertussis DNA (PCR) NOT DETECTED Nasal Coronavir 229E PCR NOT DETECTED Nasal Coronavir HKU1 PCR NOT DETECTED Nasal Coronavir NL63 PCR NOT DETECTED Nasal Coronavir OC43 PCR NOT DETECTED Nasal Enterovir/Rhinovir PCR NOT DETECTED Nasal Influenza B PCR NOT DETECTED Nasal Influenza A PCR NOT DETECTED Nasal Parainfluen 1 PCR NOT DETECTED Nasal Parainfluen 2 PCR NOT DETECTED Nasal Parainfluen 3 PCR NOT DETECTED Nasal Parainfluen 4 PCR NOT DETECTED Nasal RSV (PCR) NOT DETECTED Nasal B.pertussis DNA PCR NOT DETECTED Nasal C.pneumoniae (PCR) NOT DETECTED Ananth Human Metapneumo PCR NOT DETECTED Nasal M.pneumoniae (PCR) NOT DETECTED Nasal SARS-CoV-2 (PCR) NOT DETECTED - Rads (name of study) chest xray Relevant Findings:: Prelim report reviewed, See rad report PD Medical Decision Making - ED course Complexity details: reviewed results, re-evaluated patient, considered differential, d/w patient ED course: Patient presents due to syncopal episode. Vital signs are stable throughout ED stay, normal sinus rhythm on the monitor. No rate nor rhythm abnormalities on telemetry during ED stay. Mild leukocytosis noted without other concerning abnormalities on CBC. ER abdominal panel essentially normal (minimally low calcium noted, 8.4). EKG normal (early repol pattern) and CXR without cardiopulmonary abnormality. Respiratory PCR panel is negative for viruses tested on this panel. Results discussed with patient. The cause of his syncopal episode is not apparent at this time. Return precautions are reviewed. I instructed patient to contact his primary care provider when the office is next open to arrange for next available appointment. Further testing might be needed even if symptoms do not recur. Departure - Departure Disposition: 01 Home, Self Care Clinical Impression: Syncope Qualifiers: Syncope type: unspecified Qualified Code(s): R55 - Syncope and collapse Condition: Good Instructions: ED Fainting Unkn Cause Comments: There were no concerning nor diagnostic findings on tonight's tests. Your white blood cell count was slightly elevated, but not to a concerning extent. This is a nonspecific finding; it does not indicate any specific diagnosis. Your blood tests were otherwise unremarkable. The nasal swab tested negative for a number of viruses tested on this panel, including COVID, influenza, RSV, and several other viruses. Your chest x-ray was normal, and there were no concerning findings on your EKG. The cause of your syncopal episode (passing out) is not apparent at this time. Contact your primary care provider when the office is next open to arrange for next available appointment for reevaluation. Further testing might be indicated even if you do not have symptom recurrence. Forms: Activity restrictions Discharge Date/Time: 05/17/23 01:10
[2023-05-16] MEDS ORDERED: SODIUM CHLORIDE 0.9% 1,000 ML IV STA (22:12)
[2023-05-16 22:27] LABS: BASOPHILS % (AUTO) 0.3 %; EOSINOPHILS % (AUTO) 0.1 %; HCT - HEMATOCRIT 45.1 % (42.0-52.0); HGB - HEMOGLOBIN 14.8 g/dL (14.0-18.0); LYMPHOCYTES # (AUTO) 0.3 10^3/uL (1.5-3.5); LYMPHOCYTES % (AUTO) 2.4 %; MEAN CORPUSCULAR HEMOGLOBIN 31.1 pg (27.0-31.0); MEAN CORPUSCULAR HGB CONC 32.8 g/dL (32.0-36.0); MEAN CORPUSCULAR VOLUME 94.7 fL (80.0-94.0); MEAN PLATELET VOLUME 9.5 fL (7.4-11.4); MONOCYTES # (AUTO) 0.8 10^3/uL (0.0-1.0); MONOCYTES % (AUTO) 5.8 %; NEUTROPHILS # (AUTO) 12.7 10^3/uL (1.5-6.6); NEUTROPHILS % (AUTO) 91.1 %; PLT - PLATELET COUNT 259 10^3/uL (130-450); RED BLOOD COUNT 4.76 10^6/uL (4.70-6.10); RED CELL DISTRIBUTION WIDTH 13.4 % (12.0-15.0); WHITE BLOOD COUNT 13.9 x10^3/uL (4.8-10.8)
[2023-05-16 22:40] LABS: ALBUMIN/GLOBULIN RATIO 1.5 (1.0-2.2); BILIRUBIN,TOTAL 0.8 mg/dL (0.2-1.0); CALCIUM 8.4 mg/dL (8.5-10.3); POTASSIUM 3.5 mmol/L (3.5-4.5); TOTAL PROTEIN 6.6 g/dL (6.4-8.9)
--- NOTE | 2023-05-16 22:43 | XRAY Report ---
PROCEDURE: Chest 2V INDICATIONS: syncope TECHNIQUE: 2 views of the chest were acquired. COMPARISON: None. FINDINGS: Surgical changes and devices: None. Lungs and pleura: No pleural effusions or pneumothorax. Lungs are clear. Mediastinum: Mediastinal contours appear normal. Heart size is normal. Bones and chest wall: No suspicious bony lesions. Overlying soft tissues appear unremarkable. IMPRESSION: No acute cardiopulmonary process. Reviewed by: Nikolai Live MD on 05/16/2023 10:42 PM [facility] Approved by: Nikolai Live MD on 05/16/2023 10:42 PM [facility] Station ID: [id number]
[2023-05-17 00:30] LABS: B. PARAPERTUSSIS- RESP PCR PAN NOT DETECTED; B. PERTUSSIS- RESP PCR PANEL NOT DETECTED; C. PNEUMONIAE- RESP PCR PANEL NOT DETECTED; CORONAVIRUS 229E-RESP PCR NOT DETECTED; CORONAVIRUS HKU1-RESP PCR NOT DETECTED; CORONAVIRUS NL63-RESP PCR NOT DETECTED; CORONAVIRUS OC43-RESP PCR NOT DETECTED; HUMAN METAPNEUMOVIRUS NOT DETECTED; INFLUENZA A- RESP PCR PANEL NOT DETECTED; INFLUENZA B - RESP PCR PANEL NOT DETECTED; M. PNEUMONIAE- RESP PCR PANEL NOT DETECTED; PARAINFLUENZA VIRUS 1 NOT DETECTED; PARAINFLUENZA VIRUS 2 NOT DETECTED; PARAINFLUENZA VIRUS 3 NOT DETECTED; PARAINFLUENZA VIRUS 4 NOT DETECTED; RHINOVIRUS/ENTEROVIRUS NOT DETECTED; RSV- RESP PCR PANEL NOT DETECTED; SARS-CoV-2 -RESP PCR PANEL NOT DETECTED
[2023-05-17 01:36] VITALS: BP 109/73; O2SAT 95
== END 2023-05-17 01:10 | disposition home or self-care (01) ==
LOC: EDUNIT# → ED 21:55
DX: R55 Syncope and collapse (principal); Z11.52 Encounter for screening for COVID-19
CPT/HCPCS: 36415; 80053; 83690; 85025; 87633; 93005; 99283; 99284